=== PATIENT | female | born 1990 | race Caucasian/White ===

== ENCOUNTER 2016-04-28 22:45 | Emergency (ER) | payer BC ==
[2016-04-28 23:09] VITALS: BP 114/77; PULSE 88; TEMP 98.2; BMI 31.3
--- NOTE | 2016-04-28 23:24 | PDOC ---
History of Present Illness - General Chief Complaint: Back Pain Stated Complaint: BACK PAIN History Source: Patient, Unavil. due to pt. cond. - History of Present Illness Initial Comments: 04/29/16 01:09 Healthy 26yo female presents with cough, cold, congestion and fever for the past two to three days. Mom thinks she has pneumonia. Timing/Duration: 1 week Severity: moderate Modifying Factors: worse with: other Associated Symptoms: denies: denies symptoms Past History - Past Medical History Allergies/Adverse Reactions: Allergies Allergy/AdvReac Type Severity Reaction Status Date / Time cefaclor [From Ceclor] Allergy Verified 02/08/12 22:37 Home Medications: Ambulatory Orders Acetaminophen W/ Codeine #3 [Tylenol # 3] 1 tab PO HS PRN #10 tablet 02/08/12 Azithromycin [Zithromax Z-ALFIE (5 DAYS)] 250 mg PO DAILY #4 tablet 02/08/12 Levofloxacin [Levaquin] 750 mg PO DAILY #10 tab 04/29/16 Ondansetron [Zofran Odt -] 4 mg SL TID #21 od.tablet 04/29/16 Oxycodone HCl/Acetaminophen [Percocet 5-325 mg Tablet] 1 - 2 tab PO Q6H #20 tab MDD 5 04/29/16 - Immunization History Td Vaccination: Yes Immunization Up to Date: Yes - Psycho/Social/Smoking Cessation Hx Anxiety: No Suicidal Ideation: No Smoking Status: No Smoking History: Never smoked Number of Cigarettes Smoked Daily: 0 Cigars Per Day: 0 Review of Systems - Review of Systems Able to Perform ROS?: Yes Is the patient limited Sami proficient: No Constitutional: Yes: See HPI HEENTM: No: Symptoms Reported Respiratory: Yes: See HPI Cardiac (ROS): No: Symptoms Reported ABD/GI: No: Symptoms Reported : No: Symptoms Reported Musculoskeletal: No: Symptoms Reported Integumentary: No: Symptoms Reported Neurological: No: Symptoms reported Endocrine: No: Symptoms Reported Hematologic/Lymphatic: No: Symptoms Reported All Other Systems: Reviewed and Negative *Physical Exam - Vital Signs Last Vital Signs Temp Pulse Resp BP Pulse Ox 98.2 F 88 16 114/77 95 04/28/16 22:45 04/28/16 22:45 04/28/16 22:45 04/28/16 22:45 04/28/16 22:45 - Physical Exam Comments: 04/29/16 01:11 Healthy appearing 26 yo female NAD but prefers to move slowly due to pain. General Appearance: No: Apparent Distress HEENT: positive: Normal Voice, TMs Normal, Pharynx Normal, Other (Nasdal Congestion) Neck: positive: Supple. negative: Tender Respiratory/Chest: positive: Lungs Clear, Normal Breath Sounds. negative: Chest Tender, Respiratory Distress Cardiovascular: positive: Regular Rhythm, Regular Rate Gastrointestinal/Abdominal: positive: Normal Bowel Sounds, Flat, Soft. negative : Organomegaly Lymphatic: positive: Tenderness. 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 *DC/Admit/Observation/Transfer Diagnosis at time of Disposition: Pneumonia Qualifiers: Pneumonia type: due to unspecified organism Laterality: right Lung location: lower lobe of lung Qualified Code(s): J18.9 - Pneumonia, unspecified organism - Discharge Dispostion Disposition: HOME Condition at time of disposition: Good Admit: No - Prescriptions Prescriptions: Levofloxacin [Levaquin] 750 mg PO DAILY #10 tab Oxycodone HCl/Acetaminophen [Percocet 5-325 mg Tablet] 1 - 2 tab PO Q6H #20 tab MDD 5 Ondansetron [Zofran Odt -] 4 mg SL TID #21 od.tablet - Referrals Referrals: Erika Duque [Primary Care Provider] - - Patient Instructions Printed Discharge Instructions: DI for Pneumonia -- Adult Additional Instructions: Michelle- Rest, Plenty of Fluids, Motrin for Fever with the meds I wrote for you. Take the percocet only if absolutely necessary. Levaquin is your antibiotic. Derrick- Dr. Sudhir Patterson
[2016-04-28] MEDS ORDERED: IBUPROFEN 400 MG TABLET (FP) PO ONE ×2 (23:42→23:49)
[2016-04-28] MEDS ORDERED: OXYCODONE/APAP 5/325MG COMBO TABLET PO ONE (23:43)
[2016-04-28] MEDS ORDERED: ONDANSETRON *ODT* 4 MG TABLET SL ONE (23:44)
[2016-04-28 23:49] LABS: URINE APPEARANCE Clear; URINE BILIRUBIN Negative (NEGATIVE); URINE GLUCOSE (UA) Negative (NEGATIVE); URINE KETONE Negative (NEGATIVE); URINE LEUK ESTERASE Negative (NEGATIVE); URINE NITRITE Negative (NEGATIVE); URINE PROTEIN Negative (NEGATIVE); URINE UROBILINOGEN 1.0 E.U/dl (0.2-1.0)
[2016-04-28] MEDS ORDERED: ONDANSETRON *ODT* 4 MG TABLET ONE (23:49)
[2016-04-28] MEDS ORDERED: OXYCODONE/APAP 5/325MG COMBO TABLET ONE (23:50)
[2016-04-29 00:03] LABS: URINE COLOR AMBER
[2016-04-29 00:08] LABS: URINE BLOOD 1+ (NEGATIVE)
[2016-04-29] MEDS ORDERED: LEVOFLOXACIN 250 MG TABLET (FP) PO ONE (00:58)
[2016-04-29] MEDS ORDERED: LEVOFLOXACIN 250 MG TABLET (FP) ONE (01:05)
[2016-04-29] MEDS ORDERED: LEVOFLOXACIN 500 MG TABLET (FP) ONE (01:05)
== END 2016-04-29 01:18 | disposition home or self-care (01) ==
LOC: FER 22:45
DX: J18.9 Pneumonia, unspecified organism (principal)
CPT/HCPCS: 71020-TC; 81003; 84703; 87804; 99282-25